=== PATIENT | female | born 1980 | race Caucasian/White ===

== ENCOUNTER 2024-11-27 16:47 | Observation (INO) | payer BC, OTHER ==
[2024-11-27 16:55] VITALS: RESP 18
[2024-11-27 18:05] LABS: INR 1.09 (0.83-1.09); PROTHROMBIN TIME (PATIENT) 11.9 SEC (9.7-13.0)
[2024-11-27 18:08] LABS: ACTIVATED PTT 24.3 SECONDS (25.2-36.5)
[2024-11-27 18:10] LABS: POTASSIUM 3.9 mmol/L (3.5-5.1)
[2024-11-27 18:12] LABS: ALBUMIN 4.2 g/dl (3.4-5.0); CALCIUM 9.2 mg/dL (8.5-10.1)
[2024-11-27 18:15] LABS: CREATININE 0.6 mg/dL (0.55-1.3)
[2024-11-27 18:17] LABS: BILIRUBIN,TOTAL 0.4 mg/dL (0.2-1); TOT PROT 7.7 g/dl (6.4-8.2)
[2024-11-27 18:55] LABS: ABSOLUTE IMMATURE GRANULOCYTES 0.01 x10^3/uL (0.0-0.031); BASOPHILS # 0.02 x10^3/uL (0.01-0.08); EOSINOPHIL % 2.8 % (0.7-5.8); EOSINOPHILS # 0.12 x10^3/uL (0.04-0.36); HEMATOCRIT 21.1 % (34.1-44.9); HEMOGLOBIN 5.4 g/dL (11.2-15.7); MCHC 25.6 g/dl (32.2-35.5); MEAN CELL VOLUME 52.8 fl (79.4-94.8); MONOCYTE % 11.5 % (4.7-12.5); PLATELET COUNT 198 x10^3/uL (182-369); RDW 19.9 % (12.2-17.1)
[2024-11-27 19:15] LABS: HIV INTERPRETATION NEGATIVE (NEGATIVE)
[2024-11-27 19:16] LABS: HCV DIAGNOSTIC IN-HOUSE W/RFLX NON-REACTIVE (NONREACTIVE)
[2024-11-27 22:17] VITALS: BMI 27.3
[2024-11-28 02:46] LABS: Reticulocyte % 1.43 % (0.5-1.7)
[2024-11-28 09:27] LABS: ABSOLUTE IMMATURE GRANULOCYTES 0.01 x10^3/uL (0.0-0.031); HEMOGLOBIN 7.2 g/dL (11.2-15.7)
[2024-11-28 09:29] LABS: BASOPHILS # 0.03 x10^3/uL (0.01-0.08); EOSINOPHIL % 3.6 % (0.7-5.8); EOSINOPHILS # 0.14 x10^3/uL (0.04-0.36); HEMATOCRIT 26.3 % (34.1-44.9); MCHC 27.4 g/dl (32.2-35.5); MEAN CELL VOLUME 57.7 fl (79.4-94.8); MONOCYTE # 0.43 x10^3/uL (0.24-0.86); MONOCYTE % 11.2 % (4.7-12.5); PLATELET COUNT 294 x10^3/uL (182-369); RDW 26.1 % (12.2-17.1)
[2024-11-28 09:51] LABS: POTASSIUM 4.1 mmol/L (3.5-5.1)
[2024-11-28 09:57] LABS: BLOOD UREA NITROGEN 8.2 mg/dL (7-18)
[2024-11-28 10:00] LABS: ALBUMIN 3.5 g/dl (3.4-5.0)
[2024-11-28 10:01] LABS: CALCIUM 9.1 mg/dL (8.5-10.1)
[2024-11-28 10:03] LABS: CREATININE 0.6 mg/dL (0.55-1.3); PHOSPHOROUS 3.7 mg/dL (2.5-4.9)
[2024-11-28 10:04] LABS: BILIRUBIN,TOTAL 1.3 mg/dL (0.2-1)
[2024-11-28 10:05] LABS: TOT PROT 6.8 g/dl (6.4-8.2)
[2024-11-28] MEDS: IRON SUCROSE INJECTION 200 MG in SODIUM CHLORIDE 100 ML IVPB ONE (12:13)
[2024-11-28 15:06] LABS: HEMATOCRIT 25.1 % (34.1-44.9); HEMOGLOBIN 7.1 g/dL (11.2-15.7); MCHC 28.3 g/dl (32.2-35.5); MEAN CELL VOLUME 56.5 fl (79.4-94.8); PLATELET COUNT 214 x10^3/uL (182-369); RDW 25.3 % (12.2-17.1)
[2024-11-28 15:29] VITALS: BP 119/69; PULSE 67; TEMP 99.5
== END 2024-11-28 17:44 | disposition home or self-care (01) ==
LOC: JER 16:47 → JERBED 19:27 → J5S 21:48
PROVIDERS: ADMIT Student in an Organized Health Care Education/Training Program; ATTEND Internal Medicine
PROC: 30233N1 Transfusion of Nonautologous Red Blood Cells into Peripheral Vein, Percutaneous Approach (ICD-10-PCS; principal; 2024-11-27)
PROC: 3E033GC Introduction of Other Therapeutic Substance into Peripheral Vein, Percutaneous Approach (ICD-10-PCS; 2024-11-27)
DX: D50.9 Iron deficiency anemia, unspecified (principal); Z98.84 Bariatric surgery status; D57.3 Sickle-cell trait; L80 Vitiligo
CPT/HCPCS: 36415; 36430; 80053; 82728; 82962; 83540; 83550; 83735; 84100; 84703; 85025; 85027; 85610; 85730; 86803; 86850; 86900; 86901; 86922; 87389; 93005; 93010; 99285-25; G0378; J1756; P9038; P9058